=== PATIENT | male | born 1955 | race Caucasian/White ===

== ENCOUNTER → 2017-11-01 | Outpatient (CLI) | payer BC, OTHER | LOC: COL.RAD 10:10 | DX: K21.9 Gastro-esophageal reflux disease without esophagitis (principal); R05 Cough ==

== ENCOUNTER → 2024-06-19 | Outpatient (CLI) | payer MEDICARE, OTHER ==
[~2024-06-19] MED LIST: Gadoterate 20 ML VIAL IV ONE
== END ==
LOC: COL.RAD 07:44
DX: R25.1 Tremor, unspecified (principal)
CPT/HCPCS: A9575